=== PATIENT | male | born 1960 | race Caucasian/White ===

== ENCOUNTER 2018-04-14 09:39 | Inpatient (IN) | payer OTHER ==
[2018-04-14] MEDS: ALBUTEROL 0.5% (NEB) 2.5 MG/0.5 ML AMP INH (10:08)
[2018-04-14] MEDS: IPRATROPIUM (NEB) 0.5 MG/2.5 ML AMP INH (10:08)
[2018-04-14] MEDS: METHYLPREDNISOLONE 125 MG INJ IV ×2 (10:15→17:58)
[2018-04-14] MEDS: SODIUM CHLORIDE 0.9% 1L BAG IV* (10:19)
[2018-04-14 10:38] LABS: ADD MAN DIFF? NO
[2018-04-14 10:40] LABS: WHITE BLOOD COUNT 15.8 10^3/ul (4.8-10.8)
[2018-04-14 10:40] LABS: BASOPHILS % 0.2 % (0.0-2.0); EOSINOPHILS % 0.3 % (0.0-7.0); HEMATOCRIT 44.8 % (42.0-52.0); HEMOGLOBIN 14.5 g/dl (14.0-18.0); LYMPHOCYTES # 1.3 10^3/ul (0.8-2.9); LYMPHOCYTES % 8.5 % (15.0-51.0); MEAN CORPUSCULAR HGB CONC 32.4 g/dl (32.0-37.0); MEAN CORPUSCULAR VOLUME 95.9 fl (82.0-101.0); MONOCYTES % 6.2 % (0.0-11.0); NEUTROPHIL # 13.4 10^3/ul (1.6-7.5); NEUTROPHILS % 84.4 % (39.0-77.0); PLATELET COUNT 329 10^3/UL (140-415); RED BLOOD COUNT 4.67 10^6/ul (4.70-6.10); RED CELL DISTRIBUTION WIDTH 14.3 % (11.5-14.5)
[2018-04-14 11:05] LABS: INR 1.11; PROTIME 14.5 Sec (11.9-14.9); PT RATIO 1.1
[2018-04-14 11:06] LABS: ALANINE AMINOTRANSFERASE 29 IU/L (13-69); ALBUMIN 2.3 g/dl (3.3-4.9); ALBUMIN/GLOBULIN RATIO 0.92; ALKALINE PHOSPHATASE 52 IU/L (42-121); ANION GAP 6 (5-13); ASPARTATE AMINO TRANSFERASE 22 IU/L (15-46); BLOOD UREA NITROGEN 10 mg/dl (7-20); CALCIUM 7.2 mg/dl (8.4-10.2); CARBON DIOXIDE 28 mmol/L (21-31); CHLORIDE 107 mmol/L (97-110); GLUCOSE 76 mg/dl (70-220); PARTIAL THROMBOPLASTIN TIME 31.8 Sec (23.0-35.0); POTASSIUM 3.8 mmol/L (3.5-5.1); SODIUM 141 mmol/L (135-144); TOTAL PROTEIN 4.8 g/dl (6.1-8.1)
[2018-04-14 11:14] LABS: B-TYPE NATRIURETIC PEPTIDE 56 PG/ML (0-125)
[2018-04-14] MEDS: ACETAMINOPHEN 325 MG TAB PO (11:15)
[2018-04-14 11:18] LABS: TROPONIN-I < 0.012 ng/ml (0.000-0.120)
[2018-04-14] MEDS: CEFEPIME 2GM/50 ML (PMX) 50 ML IVPB (11:30)
[2018-04-14] MEDS: VANCOMYCIN 1 GM (PMX) 250 ML IVPB (12:20)
[2018-04-14] MEDS ORDERED: ONDANSETRON 4 MG INJ IV ×2 (13:00)
[2018-04-14] MEDS ORDERED: ALBUTEROL/IPRATROPIUM (NEB) 3 ML AMP HHN (13:00)
[2018-04-14] MEDS ORDERED: NACL 0.9% 3 ML SYG IV (13:00)
[2018-04-14] MEDS ORDERED: VANCOMYCIN IV PER PHARMACY XX (13:00)
[2018-04-14] MEDS ORDERED: ACETAMINOPHEN 325 MG TAB PO ×2 (13:00)
[2018-04-14] MEDS: IOHEXOL 300MG/ML 150 ML BTL (13:55)
[2018-04-14] MEDS: SOD CHLORIDE 0.9% 100 ML (13:55)
[2018-04-14 14:32] LABS: THYROID STIMULATING HORMONE 0.506 MIU/L (0.465-4.680)
[2018-04-14] MEDS: ALBUTEROL/IPRATROPIUM (NEB) 3 ML AMP HHN ×3 (15:30→21:14)
[2018-04-14 15:41] LABS: CREATINE KINASE 40 IU/L (23-200)
[2018-04-14 15:45] LABS: LACTIC ACID 1.6 mmol/L (0.5-2.0)
[2018-04-14 15:48] LABS: AMMONIA < 9 umol/l (9-30)
[2018-04-14] MEDS: SOD CHLORIDE 0.9% 1,000 ML IV (15:48)
[2018-04-14 15:54] LABS: CK INDEX 3.7; CK-MB 1.48 ng/ml (0.0-2.4); TROPONIN-I < 0.012 ng/ml (0.000-0.120)
[2018-04-14 16:31] LABS: ADD UMIC NO; UR ASCORBIC ACID NEGATIVE (NEGATIVE); UR BILIRUBIN (Dip) NEGATIVE (NEGATIVE); UR BLOOD (Dip) NEGATIVE (NEGATIVE); UR CLARITY CLEAR (CLEAR); UR COLOR YELLOW (YELLOW); UR GLUCOSE (Dip) NEGATIVE (NEGATIVE); UR KETONES (Dip) NEGATIVE (NEGATIVE); UR LEUKOCYTE ESTERASE (Dip) NEGATIVE Leu/ul (NEGATIVE); UR NITRITE (Dip) NEGATIVE (NEGATIVE); UR SPECIFIC GRAVITY (Dip) 1.049 (1.003-1.030); UR TOTAL PROTEIN (Dip) NEGATIVE (NEGATIVE); UR UROBILINOGEN (Dip) NEGATIVE (NEGATIVE)
[2018-04-14 16:47] LABS: AMPHETAMINE/METHAMPHETAMINE Negative (NEGATIVE); BARBITURATES Negative (NEGATIVE); BENZODIAZEPINES Negative (NEGATIVE); CANNABINOIDS Positive (NEGATIVE); COCAINE Negative (NEGATIVE); OPIATES Negative (NEGATIVE)
[2018-04-14 16:49] LABS: CREATININE 0.35 mg/dl (0.61-1.24); Estimated GFR > 60 mL/min (>60)
[2018-04-14] MEDS: FAMOTIDINE 20 MG INJ IV (20:53)
[2018-04-14] MEDS: CEFEPIME 1GM/50 ML (PMX) 50 ML IVPB (20:54)
[2018-04-14 21:04] LABS: CREATINE KINASE 35 IU/L (23-200)
[2018-04-14 21:14] LABS: CK INDEX 4.1; CK-MB 1.45 ng/ml (0.0-2.4)
[2018-04-14 21:35] LABS: TROPONIN-I < 0.012 ng/ml (0.000-0.120)
[2018-04-14] MEDS: VANCOMYCIN 1.25 GM in SOD CHLORIDE 0.9% 250 ML IVPB (23:11)
[2018-04-15] MEDS: METHYLPREDNISOLONE 125 MG INJ IV ×4 (00:31→17:45)
[2018-04-15] MEDS: ALBUTEROL/IPRATROPIUM (NEB) 3 ML AMP HHN ×6 (00:33→20:10)
[2018-04-15] MEDS: HALOPERIDOL 5 MG INJ IM ×2 (01:49→05:53)
[2018-04-15] MEDS: SOD CHLORIDE 0.9% 1,000 ML IV ×3 (02:08→20:37)
[2018-04-15] MEDS: LORAZEPAM 2 MG INJ IV ×3 (02:16→06:44)
[2018-04-15] MEDS ORDERED: LORAZEPAM 2 MG INJ IM (06:00)
[2018-04-15] MEDS: DIPHENHYDRAMINE 50 MG INJ IV (06:45)
[2018-04-15] MEDS: INFLUENZA VIRUS VACCINE 0.5 ML (DISPENSING) IM* (09:00)
[2018-04-15] MEDS: CEFEPIME 1GM/50 ML (PMX) 50 ML IVPB (09:06)
[2018-04-15] MEDS: ENOXAPARIN 40 MG/0.4 ML SYG SC (09:08)
[2018-04-15] MEDS: FAMOTIDINE 20 MG INJ IV ×2 (09:09→20:29)
[2018-04-15 09:48] LABS: ADD MAN DIFF? NO
[2018-04-15] MEDS: VANCOMYCIN 1.25 GM in SOD CHLORIDE 0.9% 250 ML IVPB (09:53)
[2018-04-15 09:54] LABS: WHITE BLOOD COUNT 13.9 10^3/ul (4.8-10.8)
[2018-04-15 09:54] LABS: ABNORMAL IP MESSAGE 1; BASOPHILS % 0.1 % (0.0-2.0); HEMOGLOBIN 13.8 g/dl (14.0-18.0); LYMPHOCYTES # 0.4 10^3/ul (0.8-2.9); MEAN CORPUSCULAR HEMOGLOBIN 31.2 pg (29.0-33.0); MEAN CORPUSCULAR HGB CONC 32.1 g/dl (32.0-37.0); MEAN CORPUSCULAR VOLUME 97.1 fl (82.0-101.0); MEAN PLATELET VOLUME 9.8 fl (7.4-10.4); MONOCYTE # 0.2 10^3/ul (0.3-0.9); MONOCYTES % 1.2 % (0.0-11.0); NEUTROPHIL # 13.2 10^3/ul (1.6-7.5); NEUTROPHILS % 95.1 % (39.0-77.0); PLATELET COUNT 326 10^3/UL (140-415); POSITIVE DIFF @See below; RED BLOOD COUNT 4.43 10^6/ul (4.70-6.10); RED CELL DISTRIBUTION WIDTH 14.3 % (11.5-14.5)
[2018-04-15] MEDS ORDERED: ENOXAPARIN 40 MG/0.4 ML SYG SC (10:00)
[2018-04-15 10:18] LABS: ALANINE AMINOTRANSFERASE 18 IU/L (13-69); ALBUMIN 3.3 g/dl (3.3-4.9); ALBUMIN/GLOBULIN RATIO 1.06; ALKALINE PHOSPHATASE 81 IU/L (42-121); ANION GAP 9 (5-13); ASPARTATE AMINO TRANSFERASE 27 IU/L (15-46); BILIRUBIN,INDIRECT 0.5 mg/dl (0-1.1); BILIRUBIN,TOTAL 0.5 mg/dl (0.2-1.3); BLOOD UREA NITROGEN 17 mg/dl (7-20); CALCIUM 9.5 mg/dl (8.4-10.2); CARBON DIOXIDE 30 mmol/L (21-31); CHLORIDE 104 mmol/L (97-110); CHOL/HDL RATIO 3.2 RATIO; CHOLESTEROL 147 mg/dl (100-200); Estimated GFR > 60 mL/min (>60); GLUCOSE 147 mg/dl (70-220); HDL CHOLESTEROL 45 mg/dl (31-75); LDL CHOLESTEROL,CALCULATED 92 mg/dl; MAGNESIUM 2.3 mg/dl (1.7-2.5); PHOSPHORUS 3.9 mg/dl (2.5-4.9); POTASSIUM 5.1 mmol/L (3.5-5.1); SODIUM 143 mmol/L (135-144); TOTAL PROTEIN 6.4 g/dl (6.1-8.1); TRIGLYCERIDES 50 mg/dl (0-149)
[2018-04-15] MEDS: LEVOFLOXACIN 500MG/D5W (PMX) 100 ML IVPB (13:57)
[2018-04-15 14:40] LABS: HEMOGLOBIN A1C 5.2 % (0-5.9)
[2018-04-15] MEDS: QUETIAPINE 25 MG TAB PO (20:29)
[2018-04-16] MEDS ORDERED: VANCOMYCIN IV PER PHARMACY XX (00:30)
[2018-04-16] MEDS: METHYLPREDNISOLONE 125 MG INJ IV ×4 (01:26→17:51)
[2018-04-16] MEDS: VANCOMYCIN 1 GM 250 ML IVPB ×2 (01:26→13:00)
[2018-04-16] MEDS: ALBUTEROL/IPRATROPIUM (NEB) 3 ML AMP HHN ×7 (01:48→23:41)
[2018-04-16] MEDS: SOD CHLORIDE 0.9% 1,000 ML IV ×2 (04:48→18:08)
[2018-04-16] MEDS: CEFEPIME 1GM/50 ML (PMX) 50 ML IVPB (09:00)
[2018-04-16] MEDS: FAMOTIDINE 20 MG INJ IV ×2 (09:00→09:15)
[2018-04-16] MEDS: ENOXAPARIN 40 MG/0.4 ML SYG SC (09:00)
[2018-04-16] MEDS: INFLUENZA VIRUS VACCINE 0.5 ML (DISPENSING) IM* (09:15)
[2018-04-16] MEDS: QUETIAPINE 25 MG TAB PO ×2 (09:15→20:07)
[2018-04-16] MEDS: CITALOPRAM 20 MG TAB PO (09:15)
[2018-04-17] MEDS: ALBUTEROL/IPRATROPIUM (NEB) 3 ML AMP HHN ×3 (06:15→13:18)
[2018-04-17] MEDS: ENOXAPARIN 40 MG/0.4 ML SYG SC (09:00)
[2018-04-17] MEDS: CITALOPRAM 20 MG TAB PO (09:22)
[2018-04-17] MEDS: QUETIAPINE 25 MG TAB PO (09:23)
[2018-04-17] MEDS: LEVOFLOXACIN 500 MG TAB PO (11:05)
[2018-04-17] MEDS: FAMOTIDINE 20 MG TAB PO (11:05)
[2018-04-17] MEDS: predniSONE 20 MG TAB PO (11:06)
== END 2018-04-17 15:15 | disposition home or self-care (01) | DRG 871 ==
LOC: E/R 09:39 → 5EC 04-15 18:00 → 6WM 12:47
PROVIDERS: Internal Medicine
DX: A41.9 Sepsis, unspecified organism (principal); J96.01 Acute respiratory failure with hypoxia; J18.0 Bronchopneumonia, unspecified organism; G92 Toxic encephalopathy; J44.1 Chronic obstructive pulmonary disease with (acute) exacerbation; F25.1 Schizoaffective disorder, depressive type; E86.0 Dehydration; Z59.0 Homelessness
CPT/HCPCS: 36415; 70450; 71045; 71260; 80053; 80061; 80307; 81003; 82140; 82550; 82553; 83036; 83605; 83735; 83880; 84100; 84443; 84484; 85025; 85610; 85730; 87040; 87086; 87400; 90686; 92610; 93306; 94640; 94644; 94660; 94664; 96365; 96375; 99285-25

== ENCOUNTER 2018-04-17 16:21 | Emergency (ER) | payer OTHER | END 2018-04-17 17:20 | disposition home or self-care (01) | LOC: E/R 16:21 | DX: E13.49 Other specified diabetes mellitus with other diabetic neurological complication (principal); Z87.891 Personal history of nicotine dependence | CPT/HCPCS: 99283; Z7502 ==

== ENCOUNTER 2018-04-18 02:39 | Emergency (ER) | payer OTHER ==
[2018-04-18] MEDS: DEXAMETHASONE 10 MG/ML 1 ML INJ IV (02:46)
[2018-04-18] MEDS: ALBUTEROL 0.5% (NEB) 2.5 MG/0.5 ML AMP INH ×2 (03:05→09:24)
[2018-04-18 03:55] LABS: ADD MAN DIFF? NO
[2018-04-18 04:16] LABS: MODE ROOM AIR; MetHgb Venous 0.2 %; Sample Type Blood venous; Site VENOUS LINE; Venous COHb 1.7 %; Venous Fraction OxyHgb 74.6 %; Venous Total Hemglobin 12.7 g/dl
[2018-04-18 04:19] LABS: ANION GAP 6 (5-13); BLOOD UREA NITROGEN 16 mg/dl (7-20); CALCIUM 9.5 mg/dl (8.4-10.2); CARBON DIOXIDE 34 mmol/L (21-31); CHLORIDE 100 mmol/L (97-110); CREATININE 0.49 mg/dl (0.61-1.24); Estimated GFR > 60 mL/min (>60); GLUCOSE 91 mg/dl (70-220); POTASSIUM 4.2 mmol/L (3.5-5.1); SODIUM 140 mmol/L (135-144)
[2018-04-18 04:24] LABS: WHITE BLOOD COUNT 6.3 10^3/ul (4.8-10.8)
[2018-04-18 04:24] LABS: BASOPHILS % 0.2 % (0.0-2.0); EOSINOPHILS % 0.2 % (0.0-7.0); HEMATOCRIT 43.7 % (42.0-52.0); HEMOGLOBIN 14.3 g/dl (14.0-18.0); LYMPHOCYTES # 1.5 10^3/ul (0.8-2.9); LYMPHOCYTES % 23.4 % (15.0-51.0); MEAN CORPUSCULAR HEMOGLOBIN 30.8 pg (29.0-33.0); MEAN CORPUSCULAR HGB CONC 32.7 g/dl (32.0-37.0); MONOCYTE # 0.7 10^3/ul (0.3-0.9); MONOCYTES % 11.5 % (0.0-11.0); NEUTROPHILS % 64.1 % (39.0-77.0); PLATELET COUNT 320 10^3/UL (140-415); RED BLOOD COUNT 4.65 10^6/ul (4.70-6.10)
[2018-04-18 04:31] LABS: TROPONIN-I < 0.012 ng/ml (0.000-0.120)
[2018-04-18 14:07] LABS: ETHANOL < 10.0 mg/dl
[2018-04-18] MEDS: IPRATROPIUM (NEB) 0.5 MG/2.5 ML AMP NEB (18:20)
[2018-04-18] MEDS: ALBUTEROL 0.083% (NEB) 2.5 MG/3 ML AMP NEB (18:21)
[2018-04-18] MEDS: HALOPERIDOL 1 MG TAB PO (20:43)
[2018-04-18] MEDS: DONEPEZIL 5 MG TAB PO (20:43)
== END 2018-04-19 00:04 ==
LOC: E/R 04-19 00:04
DX: J44.1 Chronic obstructive pulmonary disease with (acute) exacerbation (principal); R41.82 Altered mental status, unspecified; Z87.891 Personal history of nicotine dependence
CPT/HCPCS: 36415; 71045; 80048; 80307; 82803; 84484; 85025; 93005; 94640; 94644; 94645; 94664; 96374; 99285-25